=== PATIENT | male | born 1995 | race Caucasian/White ===

== ENCOUNTER 2024-07-15 17:26 | Emergency (ER) | payer BC ==
[2024-07-15] MEDS: Diphtheria,Pertussis(Acell),Tetanus Vaccine 0.5 ML Syringe IM ONE (17:56)
[2024-07-15] MEDS: Lidocaine 1% 5 ML VIAL INJECT ONE (17:57)
== END 2024-07-15 19:57 | disposition home or self-care (01) ==
LOC: MW.ED 17:26
DX: S61.311A Laceration without foreign body of left index finger with damage to nail, initial encounter (principal); Z23 Encounter for immunization; W26.0XXA Contact with knife, initial encounter
CPT/HCPCS: 12001; 90471; 90715; 99282-25; 99283; J3490